=== PATIENT | male | born 1980 ===

== ENCOUNTER 2018-02-19 10:50 | Day surgery (SDC) | payer OTHER ==
[2018-02-14 07:47] VITALS: BMI 39.9
[2018-02-19] MEDS ORDERED: Bupivacaine 0.25% 20 ML INJ IJ ONE (12:38)
[2018-02-19] MEDS ORDERED: Lidocaine/Epinephrine 1% 1:100000 10 ML IJ ONE (12:38)
[2018-02-19] MEDS ORDERED: ceFAZolin IV 2 gm in Dextrose 2 GM/50 ML BAG IVPB ONE (12:39)
[2018-02-19] MEDS ORDERED: KETAMINE HCL 50 MG/ML SYRINGE ONE (12:41)
[2018-02-19] MEDS ORDERED: Midazolam 2 MG/2 ML VIAL ONE (12:44)
[2018-02-19] MEDS ORDERED: Propofol 10 mg/ml Inj (20 ML) ONE (13:08)
[2018-02-19] MEDS ORDERED: HYDROmorphone 0.5 mg/0.5 ml ISec IVP PRN (14:11)
--- NOTE | 2018-02-19 15:53 | PCM.SURG1 ---
Surgeon's Initial Post Op Note - Surgeon's Notes Surgeon: Sin Farfan MD [employer] Project Manager: MERCEDES Tinoco Type of Anesthesia: General Endo Pre-Operative Diagnosis: Sebaceous Cyst of Scalp, Multiple Operative Findings: Hard lesion of scalp possible Dermoid cyst of scalp, multiple Post-Operative Diagnosis: Dermoid cyst of Scalp, Multiple Operation Performed: Excision of Scalp lesion Occipital area 5x3x2 cm. Excision of Scalp lesion Occipital area 2x1 cm. Excision of Redundant skin of Sclap 4x2x1 cm Specimen/Specimens Removed: 1. Scalp lesion 5x4x2 cm. 2. Scalp lesion 2x1 cm Estimated Blood Loss: EBL {In ML}: 10 Blood Products Given: N/A Drains Used: No Drains Post-Op Condition: Good Date of Surgery/Procedure: 02/19/18 Time of Surgery/Procedure: 15:53
[2018-02-19 16:25] VITALS: RESP 18
[2018-02-19 16:57] VITALS: BP 111/66; PULSE 89; TEMP 97.8; O2SAT 99
--- NOTE | 2018-02-20 03:57 | OP ---
Copied To: Freedom Farfan MD Attending MD: Freedom Farfan MD PROCEDURE DATE: 02/19/2018 PREOPERATIVE DIAGNOSIS: Sebaceous cyst of the scalp, multiple. POSTOPERATIVE DIAGNOSIS: Possible dermoid cyst of the scalp, multiple. PROCEDURES DONE: 1. Excision of the scalp lesion, 5 x 4 x 2 cm size in the occipital area. 2. Excision of the scalp lesion, 2 x 1 cm size in the occipital area. 3. Excision of the redundant skin of the scalp, 5 x 3 cm size. TYPE OF ANESTHESIA: Local anesthesia plus sedation. ESTIMATED BLOOD LOSS: Around 50 mL. DRAINS: None. COMPLICATIONS: None. PATHOLOGY: 1. The very hard benign looking scalp lesion of the occipital area was sent for the pathology. 2. Scalp lesion of the occipital area, 2 x 1 cm was sent for the pathology. 3. A redundant skin. INTRAOPERATIVE FINDINGS: The patient had a very hard smooth lesion of the occipital area in two different location of the occipital area, was removed, and it was sent off the table for the pathology. DESCRIPTION OF PROCEDURE: On intraoperative steps, this is a 37-year-old male who was diagnosed with possible sebaceous cyst of the scalp, and the patient was consented for the excision, brought to the OR, and placed supine on the operating table. After induction of the anesthesia, the occipital area was prepped and draped in the usual sterile fashion. After removing the hair, the transverse incision was made after incising the skin and scalp layer. The thick rubbery smooth scalp lesion was identified, and it was approximately 5 x 4 cm. It was completely excised, and it was sent off the table for the pathology. There was another nearby occipital area scalp lesion that was also excised, and it was sent off the table for the pathology. Due to the redundant excessive skin, the 5 x 3 cm skin was excised, and it was sent off the table for the pathology, and the wound was irrigated. Hemostasis was achieved properly, and the wound was closed in two layers, the scalp layer with 2-0 Vicryl and the skin with a 4-0 nylon interrupted suture, and dry sterile dressing was applied. The patient tolerated the procedure well. Count of the instruments and gauze was correct. There were no apparent complication. The patient was sent to the postanesthesia care unit in stable condition. Freedom Farfan MD [facility] # [id number]
== END 2018-02-19 16:50 | disposition home or self-care (01) ==
LOC: C.SDS 10:50
PROVIDERS: ATTEND Surgery Surgical Critical Care
DX: L72.3 Sebaceous cyst (principal); D36.11 Benign neoplasm of peripheral nerves and autonomic nervous system of face, head, and neck
CPT/HCPCS: 11426; 12032; 64788; 88305; 88342; J0690; J1170; J1885; J2250; J2405; J2704; J3010